=== PATIENT | female | born 1930 | race African-American/Black ===

== ENCOUNTER 2016-07-26 13:38 | Emergency (ER) | payer MEDICARE, BC ==
[~2016-07-26] VITALS: Ht 157.5 cm; Wt 57.2 kg
[~2016-07-26 13:38] MED LIST: ADLT ASA LOW81 MG PO; ADVAIR DISK1 IN; ADVAIR DISK1 PO; ALBUTEROL2.5 MG/3 M IN; ALREX0.2 % OS; APRACLONIDINE 0.5%; APRACLONIDINE 0.5% OS; ASPIRIN81 MG OR; BI-PAP IN; CALCIUM + D600 MG PO; CIPRO500 MG OR; CIPROFLOXACN500 MG PO; COMBIVENT IN; COMBIVENT INH; DUONEB IN; FISH OIL1000 MG PO; FLUTICASONE50 MCG INH; FUROSEMIDE20 MG PO; KLOR-CON 1010 ME1 OR; KLOR-CON 1010 ME1 PO; KRISTALOSE10 GM PO; LASIX 20 MG TAB20 MG OR; LATANOPROST0.005 %; LEVOTHYROXIN100 MC1 PO; LEVOTHYROXIN100 MCG PO; LEVOTHYROXIN112 MCG OR; LEVOTHYROXIN25 MC1 PO; LEVOTHYROXIN75 MC1 PO; LEVOTHYROXINE88 MCG PO; LIPITOR10 MG PO; MEDDOSEPAK OR; MEGACE20 MG/TAB PO; MELOXICAM15 MG OR; MESTINON OR; MESTINON60 MG OR; MESTINON60 MG PO; MULTI 501 PO; MURINE EAR6.5 % OT; OXY1; PRAVACHOL20 MG PO; PREDNISONE1 MG OR; PREDNISONE10 MG PO; PROMETHAZINE25 MG OR; SYNTHROID25 MCG PO; SYNTHROID75 MCG PO; XALATAN0.005 % OU; ZPAK PO
[2016-07-26 15:34] LABS: HEMOGLOBIN 11.6 g/dl (12.0-16.0); MEAN CELL VOLUME 93.2 fL CALC (80.0-100.0); MEAN CORPUSCULAR HGB 29.2 pG CALC (26.0-32.0); MEAN CORPUSCULAR HGB CONC 31.4 g/L CALC (32.0-36.0); NEUT# 2.47 thou/uL (2.00-7.15); RED BLOOD COUNT 3.97 mill/uL (4.20-5.60); RED CELL DISTRI WIDTH 14.7 % (11.5-15.5)
[2016-07-26 15:52] LABS: PROTHROMBIN TIME 10.7 SECONDS (9.0-12.5)
[2016-07-26 15:54] LABS: ALBUMIN 3.9 g/dL (3.2-5.0); ALKALINE PHOSPHATASE 62 u/l (38-126); ANION GAP 8 (6-22 (CALC)); BILIRUBIN, TOTAL 0.5 mg/dL (0.0-1.4); BUN 14 mg/dL (8-23); BUN/CREATININE RATIO 16 (12-20 (CALC)); CALCIUM 9.7 mg/dL (8.4-10.2); CARBON DIOXIDE 30 mmol/l (22-30); CHLORIDE 105 mmol/l (95-108); CREATININE 0.9 mg/dL (0.5-1.0); GFR 60 ML/MIN (>=60 (CALC)); GFR FOR AFR.AMER. > 60 ML/MIN (>=60 (CALC)); GLUCOSE 92 mg/dL (82-115); POTASSIUM 4.5 mmol/l (3.5-5.1); SGOT/AST 31 u/l (9-36); SGPT/ALT 37 u/l (11-66); SODIUM 138 mmol/l (137-146); TOTAL PROTEIN 7.2 g/dL (6.3-8.2)
[2016-07-26 17:15] VITALS: BP 126/81
== END 2016-07-26 17:20 | disposition home or self-care (01) ==
LOC: ED 13:38
PROVIDERS: Emergency Medicine
DX: S50.11XA Contusion of right forearm, initial encounter (principal); M06.9 Rheumatoid arthritis, unspecified; J44.9 Chronic obstructive pulmonary disease, unspecified; I10 Essential (primary) hypertension; E03.9 Hypothyroidism, unspecified; X58.XXXA Exposure to other specified factors, initial encounter; Z85.118 Personal history of other malignant neoplasm of bronchus and lung; Z90.2 Acquired absence of lung [part of]

== ENCOUNTER 2017-03-29 21:02 | Emergency (ER) | payer MEDICARE, BC ==
[~2017-03-29] VITALS: Ht 157.5 cm; Wt 68.0 kg
[2017-03-29 23:21] LABS: HEMATOCRIT 37.2 % (37.0-47.0); HEMOGLOBIN 11.9 g/dl (12.0-16.0); IMMATURE GRANULOCYTES 0.5 % (0.0-1.0); MEAN CELL VOLUME 93.5 fL CALC (80.0-100.0); MEAN CORPUSCULAR HGB 29.9 pG CALC (26.0-32.0); NEUT# 4.35 thou/uL (2.00-7.15); RED BLOOD COUNT 3.98 mill/uL (4.20-5.60); RED CELL DISTRI WIDTH 15.9 % (11.5-15.5)
[2017-03-29 23:24] LABS: URINE BILIRUBIN - DIPSTICK NEGATIVE (NEGATIVE); URINE BLOOD DIPSTICK NEGATIVE (NEGATIVE); URINE COLOR YELLOW; URINE GLUCOSE - DIPSTICK NEGATIVE (NEGATIVE); URINE KETONE NEGATIVE (NEGATIVE); URINE LEUK ESTERASE NEGATIVE (NEGATIVE); URINE NITRITE - DIPSTICK NEGATIVE (Negative); URINE PH 6.5 (4.5-8.0); URINE PROTEIN - DIPSTICK NEGATIVE (NEG-TRACE); URINE SPECIFIC GRAVITY 1.015; URINE UROBILINOGEN - DIPSTICK 0.2 E.U./dL (0.2)
[2017-03-29 23:25] LABS: URINE CLARITY CLEAR
[2017-03-29 23:35] LABS: ALBUMIN 3.7 g/dL (3.2-5.0); ALKALINE PHOSPHATASE 63 u/l (38-126); ANION GAP 11 (6-22 (CALC)); BILIRUBIN, TOTAL 0.4 mg/dL (0.0-1.4); BUN 19 mg/dL (8-23); BUN/CREATININE RATIO 18 (12-20 (CALC)); CARBON DIOXIDE 25 mmol/l (22-30); CHLORIDE 112 mmol/l (95-108); GFR 53 ML/MIN (>=60 (CALC)); GFR FOR AFR.AMER. > 60 ML/MIN (>=60 (CALC)); GLUCOSE 95 mg/dL (82-115); POTASSIUM 4.2 mmol/l (3.5-5.1); SGOT/AST 42 u/l (9-36); SGPT/ALT 45 u/l (11-66); SODIUM 143 mmol/l (137-146); TOTAL PROTEIN 6.4 g/dL (6.3-8.2)
[2017-03-29 23:49] LABS: MYOGLOBIN 173 ng/mL (0 - 62)
[2017-03-30 00:30] VITALS: BP 148/70
[2017-03-30] MEDS ORDERED: AMBIEN5 MG PO (00:35)
== END 2017-03-30 00:56 | disposition home or self-care (01) ==
LOC: ED 21:02
PROVIDERS: Emergency Medicine
DX: F05 Delirium due to known physiological condition (principal); E03.9 Hypothyroidism, unspecified; J44.9 Chronic obstructive pulmonary disease, unspecified; M06.9 Rheumatoid arthritis, unspecified